=== PATIENT | female | born 1985 | race Caucasian/White ===

== ENCOUNTER → 2016-06-25 | Outpatient (CLI) | payer OTHER | END | disposition home or self-care (01) | LOC: LABWHC1 10:36 | PROVIDERS: ATTEND Nurse Practitioner Family | DX: Z30.42 Encounter for surveillance of injectable contraceptive (principal) | CPT/HCPCS: 36415; 84703 ==

== ENCOUNTER → 2018-11-26 | Outpatient (CLI) | payer OTHER ==
--- NOTE | 2018-11-26 16:07 | XR ---
EXAMINATION TYPE: XR wrist complete LT DATE OF EXAM: 11/26/2018 COMPARISON: None HISTORY: Wrist pain TECHNIQUE: 4 view left wrist FINDINGS: Soft tissues are normal. Joint spaces are preserved. No acute fracture or dislocation is ev ident. If there is pain at the anatomic snuff box, nuclear medicine bone scan be recommended for additional evaluation. Follow-up exam can be performed 7-10 days from acute trauma for continued pain. IMPRESSION: 1. Normal 4 view left wrist
== END | disposition home or self-care (01) ==
LOC: RADXRMAIN 14:09
PROVIDERS: ATTEND Family Medicine
DX: M25.532 Pain in left wrist (principal)

== ENCOUNTER 2020-08-03 02:59 | Inpatient (IN) | payer OTHER ==
[2020-08-03] MEDS ORDERED: CARBOPROST TROMETHAMINE 250 MCG/ML 1 ML AMP IM PRN (03:20)
[2020-08-03] MEDS ORDERED: LIDOCAINE 0.5% (PF) 5 MG/ML (50 ML SDV) SQ PRN (03:20)
[2020-08-03] MEDS ORDERED: METHYLERGONOVINE 0.2 MG/ML 1 ML AMP IM PRN (03:20)
[2020-08-03] MEDS ORDERED: TERBUTALINE 1 MG/ML VIAL SQ PRN (03:20)
[2020-08-03] MEDS ORDERED: OXYTOCIN 10 UNIT/ML 1 ML VIAL IM PRN (03:20)
[2020-08-03] MEDS ORDERED: LACTATED RINGERS 1,000 ML IV SCH (03:30)
[2020-08-03 03:40] LABS: Basophils # (A) 0.1 k/uL (0-0.2); Basophils % (A) 0 %; Eosinophils # (A) 0.3 k/uL (0-0.7); Eosinophils % (A) 1 %; HCT 39.5 % (34.0-46.0); Lymphocytes # (A) 3.5 k/uL (1.0-4.8); Lymphocytes % (A) 18 %; MCH 28.8 pg (25.0-35.0); MCHC 32.9 g/dL (31.0-37.0); MCV 87.6 fL (80.0-100.0); Mean Platelet Volume 10.3; Monocytes # (A) 0.9 k/uL (0-1.0); Monocytes % (A) 5 %; Neutrophils # (A) 14.4 k/uL (1.3-7.7); Neutrophils % (A) 74 %; Platelet Count 233 k/uL (150-450); RBC 4.51 m/uL (3.80-5.40); RDW 13.5 % (11.5-15.5); WBC 19.5 k/uL (3.8-10.6)
--- NOTE | 2020-08-03 03:52 | P.HPOB ---
History of Present Illness H&P Date: 08/03/20 Chief Complaint: Labor 34 year old 5 P4 presents at 37 weeks and 4 days in active labor. Her cervix is 8 cm dilated, her percent effaced, -2 station. She is cristiano every 2-3 minutes. heart tones 130 with moderate variability and reactive. Review of Systems All systems: negative Constitutional: Denies chills, Denies fever Eyes: denies blurred vision, denies pain Ears, nose, mouth and throat: Denies headache, Denies sore throat Cardiovascular: Denies chest pain, Denies shortness of breath Respiratory: Denies cough Gastrointestinal: Denies abdominal pain, Denies diarrhea, Denies nausea, Denies vomiting Genitourinary: Denies dysuria, Denies hematuria Musculoskeletal: Denies myalgias Integumentary: Denies pruritus, Denies rash Neurological: Denies numbness, Denies weakness Psychiatric: Denies anxiety, Denies depression Endocrine: Denies fatigue, Denies weight change Past Medical History Past Medical History: GERD/Reflux Additional Past Medical History / Comment(s): colitis. Obstetric history: She's had 4 previous vaginal deliveries. This is her fifth and had care with Dr. Knutson. Her type was O+, antibodies negative, rubella immune, RPR nonreactive, hepatitis B negative, HIV nonreactive. GBS negative. History of Any Multi-Drug Resistant Organisms: None Reported Past Surgical History: Orthopedic Surgery Additional Past Surgical History / Comment(s): Arthroscopic knee surgery. Past Anesthesia/Blood Transfusion Reactions: No Reported Reaction Past Psychological History: No Psychological Hx Reported Smoking Status: Current every day smoker Past Alcohol Use History: None Reported Past Drug Use History: Marijuana - Past Family History Mother Family Medical History: No Reported History Father Family Medical History: Hypertension Sister(s) Family Medical History: No Reported History Brother(s) Family Medical History: No Reported History Daughter(s) Family Medical History: No Reported History Son(s) Family Medical History: No Reported History Medications and Allergies Home Medications Medication Instructions Recorded Confirmed Type Omeprazole [PriLOSEC] 40 mg PO AC-BRKFST 12/23/14 08/03/20 History Allergies Allergy/AdvReac Type Severity Reaction Status Date / Time Penicillins Allergy Anaphylaxis Verified 08/03/20 03:13 Exam Osteopathic Statement: *. No significant issues noted on an osteopathic structural exam other than those noted in the History and Physical/Consult. Vital Signs Temp Pulse Resp BP 08/03/20 03:12 97.2 F L 67 18 153/71 Intake and Output 08/02/20 08/02/20 08/03/20 14:59 22:59 06:59 Other: Weight 69.853 kg Heart: Regular rate and rhythm Lungs: Clear to auscultation bilaterally Abdomen: Soft, nontender Extremities: Negative Homans sign Results Result Diagrams: 08/03/20 03:15 Abnormal Lab Results - Last 24 Hours (Table) 08/03/20 Range/Units 03:15 WBC 19.5 H (3.8-10.6) k/uL Neutrophils # 14.4 H (1.3-7.7) k/uL Assessment and Plan (1) Active labor Current Visit: Yes Status: Acute Code(s): [id number] - SNOMED Code(s): 648354870 Plan: 1. Admit to family place 2. Expectant management 3. Anticipate normal vaginal delivery
[2020-08-03] MEDS ORDERED: ACETAMINOPHEN TAB 325 MG TAB PO PRN (03:53)
[2020-08-03] MEDS ORDERED: diphenhydrAMINE 25 MG CAP PO PRN (03:53)
[2020-08-03] MEDS ORDERED: BENZOCAINE/MENTHOL SPRAY 1 GM/SPRAY AEROSOL TOPICAL PRN (03:53)
[2020-08-03] MEDS ORDERED: diphenhydrAMINE 50 MG/ML 1 ML VIAL IVP PRN ×2 (03:53)
[2020-08-03] MEDS ORDERED: diphenhydrAMINE 50 MG CAP PO PRN (03:53)
[2020-08-03] MEDS ORDERED: LANOLIN CREAM 5 GM TUBE TOPICAL PRN (03:53)
[2020-08-03] MEDS ORDERED: HYDROCORTISONE 2.5% RECTAL CREAM 30 GM TUBE RECTAL PRN (03:53)
[2020-08-03] MEDS ORDERED: SIMETHICONE 80 MG CHEWABLE PO PRN (03:53)
[2020-08-03] MEDS ORDERED: ZOLPIDEM 5 MG TAB PO PRN (03:53)
--- NOTE | 2020-08-03 03:53 | P.PROBDLV ---
Vaginal Delivery Note - . Vaginal Delivery Note: 34 year old 5 P4 presents at 37 weeks and 4 days in active labor. Her cervix is 8 cm dilated, her percent effaced, -2 station. She is cristiano every 2-3 minutes. heart tones 130 with moderate variability and reactive. She was soon complete and amniotomy was performed at 3:27 AM. She pushed, delivered a viable female over intact perineum at 3:34 AM. Head delivered OA, anterior shoulder delivered gentle downward guidance. The posterior shoulder and rest of body. Nose and mouth bulb suctioned, cord clamped and cut, infant placed on mother's abdomen. Apgars 8, 9, weight 5 lbs. 6 oz. Placenta delivered spontaneous, intact with three-vessel cord at 3:37 AM. Vagina, cervix, perineum inspected. No lacerations noted. Estimated blood loss 100 mL. Mother and baby in stable condition.
[2020-08-03] MEDS ORDERED: OXYTOCIN 30 UNITS/500 ML NS 30 UNIT in SALINE 1 500ML.BAG IV SCH (04:00)
[2020-08-03] MEDS: IBUPROFEN 600 MG TAB PO PRN (10:03)
[2020-08-03] MEDS: SENNOSIDES-DOCUSATE SODIUM 1 EACH TAB PO SCH (20:27)
[2020-08-04] MEDS: IBUPROFEN 600 MG TAB PO PRN (03:36)
--- NOTE | 2020-08-04 06:35 | P.PNOBGVD ---
Subjective - Subjective Patient reports: Reports appetite normal, Reports voiding normally, Reports pain well controlled, Reports ambulating normally : doing well Objective - Latest Vital Signs Latest vital signs: Vital Signs Temp Pulse Resp BP Pulse Ox 08/04/20 00:00 98.2 F 108 H 18 113/74 08/03/20 20:00 97.8 F 99 16 115/80 08/03/20 16:00 97.6 F 70 16 115/69 98 08/03/20 12:00 97.8 F 71 16 118/75 08/03/20 08:00 97.6 F 74 16 126/75 Intake and Output 08/03/20 08/03/20 08/04/20 14:59 22:59 06:59 Other: # Voids 1 1 2 - Exam Lungs: bilateral: normal Chest: Normal S1, Normal S2 Extremities: Present: normal Abdomen: Present: normal appearance, soft Uterus: Present: normal, firm Assessment and Plan Assessment: day #1. Patient is resting without complaints and wishes to go home. Vital signs are stable she is afebrile. Uterus is firm nontender and she is having normal lochia. My impression this is a normal course. Plan is to continue routine care discharge home later today. (1) Vaginal delivery Current Visit: Yes Status: Acute Code(s): O80 - ENCOUNTER FOR FULL-TERM UNCOMPLICATED DELIVERY SNOMED Code(s): 084818648
--- NOTE | 2020-08-04 06:38 | P.DS ---
Providers Date of admission: 08/03/20 03:09 Expected date of discharge: 08/04/20 Attending physician: Sam Knutson Primary care physician: Stated None - Discharge Diagnosis(es) (1) Vaginal delivery Current Visit: Yes Status: Acute Hospital Course: Please see dictated H&P for intimate details of this patient's admission. Brief summary is a pleasant 34-year-old 5 para 4 female 37-4/7 weeks gestation who is admitted to labor and delivery in active labor. Patient quickly goes on have a vaginal delivery viable female . Please see dictated delivery note. day #1 patient is doing well wishes to go home. Patient's felt be stable for discharge home follow up with me in 6 weeks. Procedures: Normal spontaneous vaginal delivery Patient Condition at Discharge: Good Plan - Discharge Summary New Discharge Prescriptions: New Ibuprofen [Motrin] 600 mg PO Q6H PRN #30 tab PRN Reason: Pain No Action Omeprazole [PriLOSEC] 40 mg PO AC-BRKFST Discharge Medication List Omeprazole [PriLOSEC] 40 mg PO AC-BRKFST 12/23/14 [History] Ibuprofen [Motrin] 600 mg PO Q6H PRN #30 tab 08/04/20 [Rx] Follow up Appointment(s)/Referral(s): Sam Knutson MD [STAFF PHYSICIAN] - 09/22/20 10:45 am Patient Instructions/Handouts: Vaginal Delivery (DC) Activity/Diet/Wound Care/Special Instructions: No intercourse or anything per vagina for 6 weeks. Please call if any fever, chills, excessive vaginal bleeding, and/or abdominal pain. Discharge Disposition: HOME SELF-CARE
[2020-08-04 07:44] LABS: Basophils # (A) 0.1 k/uL (0-0.2); Basophils % (A) 1 %; Eosinophils # (A) 0.1 k/uL (0-0.7); Eosinophils % (A) 1 %; HCT 35.9 % (34.0-46.0); HGB 12.1 gm/dL (11.4-16.0); Lymphocytes # (A) 1.1 k/uL (1.0-4.8); Lymphocytes % (A) 9 %; MCH 29.5 pg (25.0-35.0); MCHC 33.7 g/dL (31.0-37.0); MCV 87.5 fL (80.0-100.0); Mean Platelet Volume 9.3; Monocytes # (A) 0.5 k/uL (0-1.0); Monocytes % (A) 5 %; Neutrophils # (A) 9.7 k/uL (1.3-7.7); Neutrophils % (A) 84 %; Platelet Count 180 k/uL (150-450); RDW 13.3 % (11.5-15.5); WBC 11.6 k/uL (3.8-10.6)
[2020-08-04] MEDS: SENNOSIDES-DOCUSATE SODIUM 1 EACH TAB PO SCH (09:30)
[2020-08-04 09:33] VITALS: BP 111/69; PULSE 81; RESP 16; TEMP 98.1
== END 2020-08-04 11:15 | disposition home or self-care (01) | DRG 807 ==
LOC: FBPOP 02:59 → 4FBP 03:09
PROVIDERS: ADMIT Obstetrics & Gynecology; ATTEND Obstetrics & Gynecology
PROC: 10E0XZZ Delivery of Products of Conception, External Approach (ICD-10-PCS; principal; 2020-08-03)
DX: O99.334 Smoking (tobacco) complicating childbirth (principal); Z37.0 Single live birth; Z3A.37 37 weeks gestation of pregnancy; F17.200 Nicotine dependence, unspecified, uncomplicated
CPT/HCPCS: 59025; 85025; 86850; 86900; 86901; 88307; 99213

== ENCOUNTER 2022-01-22 20:45 | Emergency (ER) | payer OTHER ==
[2022-01-22 21:34] VITALS: TEMP 98
[2022-01-22] MEDS ORDERED: FAMOTIDINE 20 MG TAB PO STA (23:13)
[2022-01-22] MEDS ORDERED: DEXAMETHASONE SOD PHOSPHATE 10 MG/ML 1 ML VIAL IM STA (23:13)
--- NOTE | 2022-01-22 23:17 | ED ---
General Adult HPI - General Chief complaint: Skin/Abscess/Foreign Body Stated complaint: face swolen Time Seen by Provider: 01/22/22 23:03 Source: patient, RN notes reviewed, old records reviewed Mode of arrival: ambulatory Limitations: no limitations - History of Present Illness Initial comments: This is a well-appearing 36-year-old female that presents to the emergency room with right-sided facial swelling. Patient states that she was working with some chemicals today and her nose started to itch around 1:00. She states gradually her top lip started to swell and now she has right-sided facial swelling. Patient states at 5:00 she took Benadryl 50 mg with no relief. She denies any nausea vomiting diarrhea or rashes. No chest pain, difficulty breathing or difficulty swallowing. Denies any medications on a daily basis. She is a half a pack a day smoker denies any alcohol or drug use. -: hour(s) (10) Location: face (right side and lip) Severity scale (1-10): 0 Quality: constant Consistency: constant Improves with: none Associated Symptoms: denies other symptoms Treatments Prior to Arrival: other (50 mg of Benadryl 1700) - Related Data Home Medications Medication Instructions Recorded Confirmed Omeprazole [PriLOSEC] 40 mg PO AC-BRKFST 12/23/14 08/03/20 Previous Rx's Medication Instructions Recorded Ibuprofen [Motrin] 600 mg PO Q6H PRN #30 tab 08/04/20 Famotidine [Pepcid] 20 mg PO BID #28 tablet 01/23/22 predniSONE 50 mg PO DAILY #5 tab 01/23/22 Allergies Allergy/AdvReac Type Severity Reaction Status Date / Time Penicillins Allergy Anaphylaxis Verified 01/22/22 21:32 Review of Systems ROS Statement: Those systems with pertinent positive or pertinent negative responses have been documented in the HPI. ROS Other: All systems not noted in ROS Statement are negative. Past Medical History Past Medical History: GERD/Reflux Additional Past Medical History / Comment(s): colitis. Obstetric history: She's had 4 previous vaginal deliveries. This is her fifth and had care with Dr. Knutson. Her type was O+, antibodies negative, rubella immune, RPR nonreactive, hepatitis B negative, HIV nonreactive. GBS negative. History of Any Multi-Drug Resistant Organisms: None Reported Past Surgical History: Orthopedic Surgery Additional Past Surgical History / Comment(s): Arthroscopic knee surgery. Past Anesthesia/Blood Transfusion Reactions: No Reported Reaction Past Psychological History: No Psychological Hx Reported Smoking Status: Current every day smoker Past Alcohol Use History: None Reported Past Drug Use History: Marijuana - Past Family History Mother Family Medical History: No Reported History Father Family Medical History: Hypertension Sister(s) Family Medical History: No Reported History Brother(s) Family Medical History: No Reported History Daughter(s) Family Medical History: No Reported History Son(s) Family Medical History: No Reported History General Exam Limitations: no limitations General appearance: alert, in no apparent distress Head exam: Present: atraumatic, normocephalic, other (Swelling to the top lip and right side of face) Eye exam: Present: EOMI. Absent: scleral icterus, conjunctival injection, perio rbital tenderness ENT exam: Present: normal oropharynx, mucous membranes moist Expanded Mouth exam: Present: tongue normal, tongue elevation. Absent: drooling, trismus, muffled voice Throat exam: normal inspection. negative: tonsillar erythema, tonsillar exudate, R peritonsillar mass, L peritonsillar mass Neck exam: Present: normal inspection, full ROM. Absent: tenderness, meningismus, lymphadenopathy Respiratory exam: Present: normal lung sounds bilaterally. Absent: respiratory distress, wheezes, rales, rhonchi, stridor, chest wall tenderness, accessory muscle use Cardiovascular Exam: Present: regular rate Extremities exam: Present: full ROM, normal capillary refill. Absent: tenderness Back exam: Absent: tenderness Neurological exam: Present: alert, oriented X3, CN II-XII intact, normal gait Psychiatric exam: Present: normal affect, normal mood Skin exam: Present: warm, dry, normal color. Absent: cyanosis, diaphoretic, petechiae, pallor Course Vital Signs 01/22/22 01/23/22 21:32 00:36 Temperature 98.0 F Pulse Rate 94 87 Respiratory 16 18 Rate Blood Pressure 115/75 113/72 O2 Sat by Pulse 98 98 Oximetry Medical Decision Making - Medical Decision Making Patient presents with ALLERGIC reaction, states was doing some cleaning with chemicals this morning when develope nasal irritation then lip and right sided facial swelling. She denies any difficulty breathing, no nausea vomiting diarrhea or rashes. Denies any dental pain. No pain with eye movements and no complaints of headaches. She does not take any medication on a daily basis. Denies any family history of angioedema. She was given a shot of Decadron and oral Pepcid and observed in the emergency room for several hours with no worsening symptoms. Vital signs are stable. Lungs sounds are clear to auscultation. It is likely this is an allergic reastion from solutions she was working with. She is given a prescription for prednisone and pepcid. Directed to take Benadryl as needed. Follow-up with her primary care doctor this week and return to emergency room with any new or concerning symptoms. She is agreeable to this plan of care. Case discussed with Dr. Rodriguez. Disposition Clinical Impression: Allergic reaction Disposition: HOME SELF-CARE Condition: Good Instructions (If sedation given, give patient instructions): General Allergic Reaction (ED) Additional Instructions: Take the prednisone once a day for the next 5 days. Use Benadryl 25-50 mg every 8 hours for any swelling. If you develop any shortness of breath, difficulty swallowing or persistent nausea vomiting return to the emergency room. Prescriptions: Famotidine [Pepcid] 20 mg PO BID #28 tablet predniSONE 50 mg PO DAILY #5 tab Is patient prescribed a controlled substance at d/c from ED?: No Referrals: Devonte Sinclair Jr, DO [Primary Care Provider] - 1-2 days Time of Disposition: 00:24
[2022-01-23 00:37] VITALS: BP 113/72; PULSE 87; RESP 18
== END 2022-01-23 00:36 | disposition home or self-care (01) ==
LOC: EC 20:45
DX: T78.40XA Allergy, unspecified, initial encounter (principal); F17.200 Nicotine dependence, unspecified, uncomplicated; F12.90 Cannabis use, unspecified, uncomplicated; K21.9 Gastro-esophageal reflux disease without esophagitis; Z79.83 Long term (current) use of bisphosphonates; Z88.0 Allergy status to penicillin
CPT/HCPCS: 99283; J1100